=== PATIENT | male | born 1940 | race Caucasian/White ===

== ENCOUNTER 2022-03-09 08:04 | Outpatient (CLI) | payer MEDICARE, BC, SELFPAY ==
[2022-03-09 12:07] LABS: Albumin* 4.3 g/dL (3.3-5.0); Chloride* 100 mmol/L (96-114); Sodium* 137 mmol/L (135-149)
[2022-03-09 12:08] LABS: Potassium* 4.6 mmol/L (3.6-5.1)
[2022-03-09 12:10] LABS: Alanine Aminotransferase* 40 U/L (4-50); Alkaline Phosphatase* 99 U/L (40-150); Aspartate Amino Transferase* 46 U/L (12-35); Bilirubin Total* 2.7 mg/dL (0.1-1.5); Blood Urea Nitrogen* 16 mg/dL (7-30); Calcium* 9.3 mg/dL (8.4-10.6); Carbon Dioxide* 28 mmol/L (20-32); Cholesterol* 130 mg/dL (90-199); Creatinine* 1.3 mg/dL (0.5-1.5); Estimated Glomerular Filt Rate 55 ml/min; Glucose* 116 mg/dL (60-115); Total Protein* 7.3 g/dL (6.0-8.3); Triglycerides* 180 mg/dL (40-149)
[2022-03-09 12:11] LABS: HDL Cholesterol* 45 mg/dL (>=40); LDL Cholesterol Calculated 49 mg/dL (<100)
== END 2022-03-09 08:05 | disposition home or self-care (01) ==
PROVIDERS: PCP Internal Medicine; Visit Provider Internal Medicine
DX: E11.9 Type 2 diabetes mellitus without complications (principal); I10 Essential (primary) hypertension; N18.2 Chronic kidney disease, stage 2 (mild)
CPT/HCPCS: 80053; 80061

== ENCOUNTER 2022-09-08 16:49 | Outpatient (CLI) | payer MEDICARE, BC, SELFPAY ==
[2022-09-08 08:56] LABS: Albumin* 4.7 g/dL (3.3-5.0); Chloride* 104 mmol/L (96-114); Sodium* 142 mmol/L (135-149)
[2022-09-08 08:59] LABS: Alkaline Phosphatase* 102 U/L (40-150); Aspartate Amino Transferase* 37 U/L (12-35); Blood Urea Nitrogen* 19 mg/dL (7-30); Carbon Dioxide* 29 mmol/L (20-32); Cholesterol* 145 mg/dL (90-199); Creatinine* 1.3 mg/dL (0.5-1.5); Estimated Glomerular Filt Rate 55 ml/min; Glucose* 128 mg/dL (60-115); Total Protein* 7.8 g/dL (6.0-8.3); Triglycerides* 209 mg/dL (40-149)
[2022-09-08 09:00] LABS: Alanine Aminotransferase* 42 U/L (4-50); Calcium* 9.6 mg/dL (8.4-10.6); HDL Cholesterol* 46 mg/dL (>=40); LDL Cholesterol Calculated 57 mg/dL (<100)
[2022-09-08 09:10] LABS: Creatinine Urine 191.1 mg/dL
[2022-09-08 09:14] LABS: Microalbumin Creatinine Ratio 30 mg/g (0-30); Microalbumin Urine 7 mg/dL
[2022-09-12 22:07] LABS: Bilirubin Direct* 0.3 mg/dL (0.0-0.5); Bilirubin Total* 3.4 mg/dL (0.1-1.5)
== END 2022-09-08 16:50 | disposition home or self-care (01) ==
PROVIDERS: PCP Internal Medicine; Visit Provider Internal Medicine
DX: N18.9 Chronic kidney disease, unspecified (principal); E11.9 Type 2 diabetes mellitus without complications; E78.5 Hyperlipidemia, unspecified; I10 Essential (primary) hypertension; R17 Unspecified jaundice
CPT/HCPCS: 80053; 80061; 82043; 82248; 82570

== ENCOUNTER 2022-09-12 16:23 | Outpatient (CLI) | payer MEDICARE, BC, SELFPAY ==
[2022-09-12 20:15] LABS: Albumin* 4.5 g/dL (3.3-5.0)
[2022-09-12 20:17] LABS: Aspartate Amino Transferase* 43 U/L (12-35); Bilirubin Direct* 0.2 mg/dL (0.0-0.5); Bilirubin Total* 2.7 mg/dL (0.1-1.5); Total Protein* 7.5 g/dL (6.0-8.3)
[2022-09-12 20:18] LABS: Alanine Aminotransferase* 47 U/L (4-50); Alkaline Phosphatase* 91 U/L (40-150)
== END 2022-09-12 16:24 | disposition home or self-care (01) ==
PROVIDERS: PCP Internal Medicine; Visit Provider Internal Medicine
DX: R17 Unspecified jaundice (principal)
CPT/HCPCS: 80076

== ENCOUNTER 2023-03-09 08:00 | Outpatient (CLI) | payer MEDICARE, SELFPAY | END 2023-03-09 08:01 | disposition home or self-care (01) | LOC: NFLDREF 15:05 | PROVIDERS: PCP Internal Medicine; Referring Provider Internal Medicine; Visit Provider Internal Medicine | DX: E11.9 Type 2 diabetes mellitus without complications (principal); E11.29 Type 2 diabetes mellitus with other diabetic kidney complication; R80.9 Proteinuria, unspecified; E78.5 Hyperlipidemia, unspecified; I10 Essential (primary) hypertension | CPT/HCPCS: 80048; 80061; 80076 ==

== ENCOUNTER 2023-09-13 07:53 | Outpatient (CLI) | payer MEDICARE, BC, SELFPAY | END 2023-09-13 07:54 | disposition home or self-care (01) | LOC: NFLDREF 09-14 11:17 | PROVIDERS: PCP Internal Medicine; Referring Provider Internal Medicine; Visit Provider Internal Medicine | DX: E11.9 Type 2 diabetes mellitus without complications (principal); E11.29 Type 2 diabetes mellitus with other diabetic kidney complication; R80.9 Proteinuria, unspecified; E80.4 Gilbert syndrome; E78.5 Hyperlipidemia, unspecified; N18.2 Chronic kidney disease, stage 2 (mild) | CPT/HCPCS: 80048; 80061; 80076; 82043; 82570 ==

== ENCOUNTER 2024-03-03 18:45 | Outpatient (CLI) | payer MEDICARE, BC, SELFPAY | END 2024-03-03 18:46 | disposition home or self-care (01) | LOC: AMB 03-08 00:18 | PROVIDERS: Visit Provider Family Medicine | DX: F03.90 Unspecified dementia, unspecified severity, without behavioral disturbance, psychotic disturbance, mood disturbance, and anxiety (principal) | CPT/HCPCS: A0425; A0429 ==

== ENCOUNTER 2024-03-03 19:02 | Emergency (ER) | payer MEDICARE, BC, SELFPAY ==
[2024-03-03 19:07] VITALS: BP 176/77; PULSE 94; RESP 18; TEMP 36.9; O2SAT 93; BMI 21.5
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
--- NOTE | 2024-03-03 19:16 | CRLHL7_ITS ---
For Patients: As a result of the Century Cures Act, medical imaging exams and procedure reports are released immediately into your electronic medical record. You may view this report before your referring provider. If you have questions, please contact your health care provider. TECHNIQUE: Multiplanar CT examination of the head was performed without the use of intravenous contrast. INDICATION: Altered mental status. COMPARISON: None. FINDINGS: No loss of underwood-white differentiation to suggest recent territorial infarct. No intracranial hemorrhage, abnormal extra-axial fluid collection, hydrocephalus or midline shift. The ventricles and cerebral sulci are prominent in caliber, compatible with mild generalized parenchymal volume loss. There is ill-defined hypoattenuation of the periventricular white matter, nonspecific but consistent with chronic microvascular ischemic changes. The basal cisterns are patent. The paranasal sinuses and mastoid air cells remain clear. The orbits and calvarium are unremarkable. The cerebellar tonsils are normal position. Severe bilateral temporomandibular joint arthrosis. IMPRESSION: 1. No acute intracranial findings. 2. Mild generalized parenchymal volume loss with chronic microvascular ischemic changes. Please note that all CT scans at this facility use dose modulation, iterative reconstruction, and/or weight-based dosing when appropriate to reduce radiation dose to as low as reasonably achievable. Dictated by Jose Juan Gaitan MD @ 03/03/2024 8:27:09 PM (Electronically Signed)
--- NOTE | 2024-03-03 19:33 | CRLHL7_ITS ---
For Patients: As a result of the Century Cures Act, medical imaging exams and procedure reports are released immediately into your electronic medical record. You may view this report before your referring provider. If you have questions, please contact your health care provider. TECHNIQUE: Multiplanar CT examination of the cervical spine was performed without the use of intravenous contrast. INDICATION: Altered mental status. COMPARISON: None. FINDINGS: Nonspecific straightening of the normal cervical lordosis. Abnormal ankylosis between the vertebral bodies of C4 through C7 suggestive of underlying ankylosing spondylitis. No craniocervical dissociation. The vertebral body heights are maintained. No acute fractures or traumatic subluxation. The odontoid process is intact. Severe multilevel degenerative disc disease. Multilevel facet degeneration. Posterior disc osteophyte complex and uncovertebral arthropathy results in at least mild canal narrowing and severe bilateral neural foraminal stenosis at C3-4. No large abnormal epidural collection identified No significant prevertebral soft tissue edema. Biapical pleural-parenchymal scarring. Mild pulmonary emphysema. The thyroid gland is unremarkable. IMPRESSION: 1. No acute fracture or traumatic subluxation of the cervical spine. 2. Multilevel cervical spondylosis most pronounced at C3-4 where there is mild canal narrowing and severe bilateral neural foraminal stenosis. Abnormal ankylosis between the vertebral bodies of C4 through C7, raising the possibility of underlying ankylosing spondylitis. Please note that all CT scans at this facility use dose modulation, iterative reconstruction, and/or weight-based dosing when appropriate to reduce radiation dose to as low as reasonably achievable. Dictated by Jose Juan Gaitan MD @ 03/03/2024 8:34:50 PM (Electronically Signed)
[2024-03-03 20:00] LABS: Appearance Urine Clear (Clear); Bilirubin Urine Negative (Negative); Blood Urine Negative (Negative); Color Urine Yellow (Yellow); Glucose Urine Negative (Negative); Ketones Urine Negative (Negative); Leukocyte Esterase Urine Negative (Negative); Nitrite Urine Negative (Negative); Protein Urine Negative (Negative); Urobilinogen Urine 0.2 (0.2-1.0)
[2024-03-03 20:05] LABS: RBC Urine 0-2 (0-2); Squamous Epithelial Cell Urine Few (None-Few); WBC Urine 0-2 (0-5)
[2024-03-03 20:07] LABS: Lactate* 2.7 mmol/L (0.5-1.9)
[2024-03-03 20:11] LABS: Basophils Absolute Auto 0.03 K/uL (0.00-0.30); Basophils Percent Auto 0.5 % (0.0-3.0); Eosinophils Percent Auto 1.7 % (0.0-7.0); Hematocrit 41.9 % (37.0-53.0); Hemoglobin* 13.3 gm/dL (13.5-17.5); Immature Granulocytes Abs Auto 0.01 K/uL (0.00-0.30); Immature Granulocytes Pct Auto 0.2 %; Lymphocytes Percent Auto 16.4 % (20-44); Mean Corpuscular HGB Conc 32 gm/dL (32-36); Mean Corpuscular Hemoglobin 28 pg (26-34); Mean Corpuscular Volume 88 fL (80-100); Monocytes Percent Auto 10.8 % (0.0-11.0); Neutrophils Absolute Auto 4.16 K/uL (1.7-7.0); Neutrophils Percent Auto 70.4 % (42.0-72.0); Platelet Count* 140 K/uL (140-440); RDW Coefficient of Variation % 14.4 % (11.5-15.5); Red Blood Count 4.77 m/uL (4.30-5.90); White Blood Count* 5.91 K/uL (4.50-11.00)
[2024-03-03 20:18] LABS: Slide Review Reflex No
[2024-03-03 20:28] LABS: Chloride* 101 mmol/L (96-114)
[2024-03-03 20:29] LABS: Albumin* 4.9 g/dL (3.3-5.0); Potassium* 4.4 mmol/L (3.6-5.1); Sodium* 139 mmol/L (135-149)
[2024-03-03 20:31] LABS: Creatinine* 1.3 mg/dL (0.5-1.5); Est. Creatinine Clearance* 40.71; Estimated Glomerular Filt Rate 54 ml/min
[2024-03-03 20:32] LABS: Alanine Aminotransferase* 29 U/L (4-50); Alkaline Phosphatase* 90 U/L (40-150); Anion Gap 11 mEq/L (7-15); Aspartate Amino Transferase* 31 U/L (12-35); Blood Urea Nitrogen* 21 mg/dL (7-30); Calcium* 10.1 mg/dL (8.4-10.6); Carbon Dioxide* 27 mmol/L (20-32); Glucose* 86 mg/dL (60-115); Total Protein* 8.2 g/dL (6.0-8.3)
[2024-03-03 20:33] LABS: Ammonia* < 9.0 umol/L (13.1-30.0)
[2024-03-03 20:45] LABS: Troponin I* < 0.01 ng/mL (0.01-0.04)
== END 2024-03-03 21:59 | disposition home or self-care (01) ==
PROVIDERS: Emergency Provider Emergency Medicine
DX: R45.1 Restlessness and agitation (principal); F03.90 Unspecified dementia, unspecified severity, without behavioral disturbance, psychotic disturbance, mood disturbance, and anxiety
CPT/HCPCS: 36415; 70450; 72125; 80053; 81001; 82140; 83605; 84443; 84484; 85025; 93005; 99283; 99284; 99285

== ENCOUNTER 2024-03-04 23:02 | Outpatient (CLI) | payer MEDICARE, BC, SELFPAY | END 2024-03-04 23:03 | disposition home or self-care (01) | LOC: AMB 03-08 02:31 | PROVIDERS: Visit Provider Family Medicine | DX: F91.9 Conduct disorder, unspecified (principal) | CPT/HCPCS: A0425; A0429 ==

== ENCOUNTER 2024-03-04 23:27 | Emergency (ER) | payer MEDICARE, BC, SELFPAY ==
[2024-03-04 23:29] VITALS: BP 167/77; PULSE 50; RESP 16; TEMP 36.3; O2SAT 95; BMI 23.0
[2024-03-05] VITALS (18 sets, daily range): BP systolic 122–169; BP diastolic 65–84; PULSE 46–82; RESP 16–20; TEMP 36.6; O2SAT 92–100
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
[2024-03-05 01:19] LABS: Appearance Urine Clear (Clear); Bilirubin Urine Negative (Negative); Blood Urine Negative (Negative); Color Urine Yellow (Yellow); Glucose Urine Negative (Negative); Ketones Urine Negative (Negative); Leukocyte Esterase Urine Negative (Negative); Nitrite Urine Negative (Negative); Protein Urine Negative (Negative); Specific Gravity Urine 1.015 (1.000-1.030); Urobilinogen Urine 0.2 (0.2-1.0); pH Urine 6.5 (5.0-8.5)
--- NOTE | 2024-03-05 01:34 | ED.NURSE ---
pt ambulated to restroom. Pt needed redirection to which room was his. Pt very cooperative.
[2024-03-05 01:36] LABS: Amphetamine Screen Urine Negative (Negative); Barbiturate Screen Urine Negative (Negative); Benzodiazepines Screen Urine Negative (Negative); Cannabinoid Screen Urine Negative (Negative); Cocaine Screen Urine Negative (Negative); Methadone Screen Urine Negative (Negative); Methamphetamines Screen Urine Negative (Negative); Opiate Screen Urine Negative (Negative); Oxycodone Screen Urine Negative (Negative); Phencyclidine Screen Urine Negative (Negative); Tricyclic Antidepressant Urine POSITIVE (Negative)
[2024-03-05 01:52] LABS: Lactate* 0.7 mmol/L (0.5-1.9)
[2024-03-05 01:55] LABS: Basophils Absolute Auto 0.03 K/uL (0.00-0.30); Basophils Percent Auto 0.6 % (0.0-3.0); Eosinophils Absolute Auto 0.12 K/uL (0.00-0.50); Eosinophils Percent Auto 2.2 % (0.0-7.0); Hematocrit 40.3 % (37.0-53.0); Hemoglobin* 12.9 gm/dL (13.5-17.5); Lymphocytes Percent Auto 17.8 % (20-44); Mean Corpuscular HGB Conc 32 gm/dL (32-36); Mean Corpuscular Hemoglobin 28 pg (26-34); Mean Corpuscular Volume 87 fL (80-100); Monocytes Percent Auto 9.7 % (0.0-11.0); Neutrophils Absolute Auto 3.72 K/uL (1.7-7.0); Neutrophils Percent Auto 69.7 % (42.0-72.0); Platelet Count* 138 K/uL (140-440); RDW Coefficient of Variation % 14.3 % (11.5-15.5); Red Blood Count 4.64 m/uL (4.30-5.90); White Blood Count* 5.34 K/uL (4.50-11.00)
[2024-03-05 01:56] LABS: Slide Review Reflex No
[2024-03-05 01:58] LABS: Amorphous Sediment Urine Few; RBC Urine 0-2 (0-2); WBC Urine 0-2 (0-5)
[2024-03-05 02:10] LABS: Chloride* 103 mmol/L (96-114); Potassium* 4.1 mmol/L (3.6-5.1); Sodium* 136 mmol/L (135-149)
[2024-03-05 02:12] LABS: Creatinine* 1.1 mg/dL (0.5-1.5); Est. Creatinine Clearance* 51.32; Estimated Glomerular Filt Rate 66 ml/min
[2024-03-05 02:13] LABS: Anion Gap 8 mEq/L (7-15); Blood Urea Nitrogen* 21 mg/dL (7-30); Calcium* 9.5 mg/dL (8.4-10.6); Carbon Dioxide* 25 mmol/L (20-32); Glucose* 102 mg/dL (60-115)
[2024-03-05] MEDS: OLANZapine 5 MG/ML inj 10 MG IM ×2 (03:50→10:09)
--- NOTE | 2024-03-05 04:00 | ED.NURSE ---
PT awake, ambulated out of room. Questioning where he was and how he got here. Pt did not believe he was in a hospital or in a emergency department. Pt Did not remember or believe that he arrived to the ER by EMS. Multiple attempts were made to verbally direct pt back to his room, Rm 2. Pt them walked out of the ER into the hallway between surgery and the ER. At this point a Dr. LEE was called. Pt walked around the hospital while staff members were attempting to verbally direct pt back to his room. Pt was directed back into the ER. Pt would not be directed into his room. Pt walked into the hospital social worker closet in the ER. Multiple attempts made to verbally direct pt back to his room. Pt would not comply and began to use vulgarity towards staff. Pt made several attempts at leaving the ER by the MD's office. Pt offered his prescribed medication to help him sleep, pt refused to take any medications orally. Pt also refused to eat or drink anything that was offered. Pt resisted attempts to leave utility room and to back to his room. Pt began to flail arms at staff when attempt to escort pt back to his room. Pt required IM medication to help remain calm for his safety and be placed back in his room. Medication administered and pt placed on bed with restraints. CMS intact to all extremities. MD present during event.
--- NOTE | 2024-03-05 04:23 | ED.NURSE ---
blood sugar 115 taken @ [id number]
--- NOTE | 2024-03-05 04:46 | ED.NURSE ---
pt restraints removed. Pt remained on SPO2 monitor. Skin injury during restraint prior to medication administration was the IV that was covered. IV was removed, cath intact. Area cleaned and 2x2 gauze applied.
--- NOTE | 2024-03-05 05:16 | ED.NURSE ---
Time line of events ROSA 0320 IM med 0350 Restraints 0355 Blood sugar check 0420 Restraints removed 044
[2024-03-05 05:21] LABS: Glucose, Point-of-Care* 115 mg/dl (60-115)
--- NOTE | 2024-03-05 05:41 | ED.NURSE ---
pt taken to restroom via wheelchair. Pt returned to room via wheelchair and ambulated to bed. Warm blanket provided to pt.
[2024-03-05] MEDS: FAMOTIDINE 20 MG TABLET PO (09:00)
[2024-03-05] MEDS: SERTRALINE 50 MG TABLET 25 MG PO ×2 (09:00→09:01)
[2024-03-05] MEDS: METOPROLOL TARTRATE 50 MG TABLET PO ×2 (09:01→09:02)
[2024-03-05] MEDS: QUETIAPINE 25 MG TABLET PO (09:02)
[2024-03-05] MEDS: OLANZapine 5 MG/ML inj IM (11:19)
[2024-03-05] MEDS: LORazepam 2 MG/ML inj 1 MG IM (11:28)
[2024-03-05 12:43] LABS: PCR FLU A Negative PCR FLU A (Negative); PCR FLU B Negative PCR FLU B (Negative); PCR RSV Negative PCR RSV (Negative); SARS PCR* Negative SARS-CoV-2 (Negative)
--- NOTE | 2024-03-05 15:08 | PC.SOCIAL ---
Discharge planning: Pt was accepted to [facility] in [place] for inpatient Whit-psych per the request of pt's family. ventilation worker has been in contact with Hilda at [facility] and faxed over all the needed information that Hilda requested to #[phone]. Pt will be transported by non-emergent EMS to the facility. ventilation worker notified the facility and pt's son that pt was leaving the hospital around 2:30pm to be transported to [place]. A nurse to nurse was completed by pt's nurse in the Emergency Department with the facility. Social work to follow-up as needed.
== END 2024-03-05 14:43 | disposition short-term general hospital (02) ==
PROVIDERS: Emergency Medicine; Emergency Provider Family Medicine
DX: R45.1 Restlessness and agitation (principal); F03.90 Unspecified dementia, unspecified severity, without behavioral disturbance, psychotic disturbance, mood disturbance, and anxiety
CPT/HCPCS: 36415; 80048; 80306; 81001; 82947; 83605; 85025; 87631; 94761; 96372; 99284; A9270; J2060

== ENCOUNTER 2024-03-05 14:35 | Outpatient (CLI) | payer MEDICARE, BC, SELFPAY | END 2024-03-05 14:36 | disposition home or self-care (01) | LOC: AMB 03-08 02:55 | PROVIDERS: Visit Provider Family Medicine | DX: F91.9 Conduct disorder, unspecified (principal) | CPT/HCPCS: A0425; A0429 ==